=== PATIENT | male | born 1975 | race Caucasian/White ===

== ENCOUNTER 2016-08-10 09:40 | Emergency (ER) | payer OTHER ==
[~2016-08-10] VITALS: Ht 193 cm; Wt 108.9 kg
--- NOTE | 2016-08-10 10:20 | ED PSYCHIATRIC COMPLAINT ---
See Addendum History of Present Illness General Chief Complaint: ETOH/Drug Related Complaint Stated Complaint: DETOX FROM ETOH + SI Source: patient, family, old records Exam Limitations: no limitations Vital Signs & Intake/Output Vital Signs & Intake/Output Vital Signs Date Time Temp Pulse Resp B/P B/P Pulse O2 O2 Flow FiO2 Mean Ox Delivery Rate 08/11 0640 96.1 65 18 145/92 99 Room Air 08/11 0444 97.3 76 18 131/69 08/11 0442 97.3 76 18 131/69 97 Room Air 08/11 0227 97.5 75 18 130/68 08/11 0227 97.5 75 18 130/68 97 Room Air 08/11 0023 97.2 77 18 129/67 / 0021 97.2 77 18 129/67 96 Room Air 08/10 2251 97.1 76 18 130/69 08/10 2241 97.1 76 18 130/69 96 08/11 2019 97.4 77 18 131/78 08/11 2019 97.4 77 18 131/78 97 Room Air 08/10 1914 97.3 78 18 130/76 08/10 1820 97.3 78 18 130/76 08/10 1816 97.3 78 18 130/76 97 08/10 1647 97.4 79 18 114/56 08/10 1647 97.4 79 18 114/58 95 Room Air 08/10 1442 98.2 84 18 119/59 98 08/10 1416 97.5 94 18 125/69 08/10 1415 97.5 94 18 125/69 97 Room Air 08/10 0951 98.6 90 20 136/80 96 Room Air ED Intake and Output 08/11 0000 08/10 1200 Intake Total Output Total Balance Patient 240 lb Weight Weight Reported by Patient Measurement Method Allergies Coded Allergies: No Known Allergies (08/10/16) Triage Note: PT TO ED WITH FATHER PT STATES HE HAS H/O BIPOLAR AND HAS BEEN DRINKING MORE HEAVILY RECENTLY, "ANYTHING I CAN GET MY HANDS ON AND MUCH MY BODY CAN HANDLE". DENIES DRUG USE. 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 PT RESISTIVE TO CARE, AGGRESSIVE WITH FATHER. DENIES SI/HI. PT TAKING CLOTHES OFF IN TRIAGE. PT RE-DRESSED, TAKEN TO AVERY D VIA W/C. SECURITY AT BEDSIDE. Triage Nurses Notes Reviewed? yes HPI: Patient brought in by his father for increasing depression with suicidal ideations. Patient has been noncompliant with his medications. Patient has also been drinking steadily over the past few months. Patient has no history of DTs or seizures. Positive blackouts. Patient denies any homicidal ideations. Patient does not have a plan on how he would hurt himself however has reached out to the crisis hotline. Patient does not know why he does not take his medications. Patient's last drink was prior to arrival. (OLINDA MATHEW,PRESTON Whitman) Past History Travel History Traveled to [place] past 21 day No Medical History Any Pertinent Medical History? see below for history Psychiatric: bipolar disease Surgical History Surgical History: non-contributory Psychosocial History What is your primary language Bangladeshi Tobacco Use: Current Daily Use Daily Tobacco Use Amount/Type: => 5 Cigarettes daily ETOH Use: heavy use Illicit Drug Use: denies illicit drug use Family History Hx Contributory? No (OLINDA MATHEW,PRESTON Whitman) Review of Systems Review of Systems Constitutional: Reports: no symptoms. EENTM: Reports: no symptoms. Respiratory: Reports: no symptoms. Cardiovascular: Reports: no symptoms. GI: Reports: no symptoms. Genitourinary: Reports: no symptoms. Musculoskeletal: Reports: no symptoms. Skin: Reports: no symptoms. Neurological/Psychological: Reports: see HPI, depressed. Hematologic/Endocrine: Reports: no symptoms. Immunologic/Allergic: Reports: no symptoms. All Other Systems: Reviewed and Negative (OLINDA MATHEW,PRESTON Whitman) Physical Exam Physical Exam General Appearance: well developed/nourished, mild distress Head: atraumatic Eyes: Bilateral: PERRL, EOMI. Ears, Nose, Throat: normal pharynx, normal ENT inspection, hearing grossly normal Neck: normal inspection, supple Respiratory: normal breath sounds Cardiovascular: regular rate/rhythm Gastrointestinal: soft, non-tender Extremities: normal range of motion Neurological/Psychiatric: no motor/sensory deficits, awake, alert, oriented x 3 Appearance/Memory/Insight: appropriate appearance, appropriate insight Behavoir/Eye Contact/Speech: cooperative, normal speech, good eye contact Thoughts/Hallucinations: normal thought pattern, no apparent hallucination Skin: intact, normal color, warm/dry SAD PERSONS Done? CRISIS CONSULT OBTAINED (OLINDA MATHEW,PRESTON Whitman) Progress Differential Diagnosis: drug intoxication, drug overdose, drug withdrawal, electrolyte abnormality Plan of Care: Orders Procedure Date/time Status Regular Diet 08/10 D Active ED CRISIS PSYCH CONSULT 08/10 1017 Active Continuous Observation Monitor 08/10 1004 Active CIWA 08/10 1004 Active URINE DRUGS OF ABUSE 08/10 1004 Complete ETHANOL 08/10 1004 Complete COMPREHENSIVE METABOLIC PANEL 08/10 1004 Complete CBC WITHOUT DIFFERENTIAL 08/10 1004 Complete Laboratory Tests 08/10/16 1121: Urine Opiates Screen < 100.00, Methadone Screen < 40, Barbiturate Screen < 60, Ur Phencyclidine Scrn < 6.00, Amphetamines Screen < 100, U Benzodiazepines Scrn 104, Urine Cocaine Screen < 50, Urine Cannabis Screen > 80.00 H 08/10/16 1046: Anion Gap 13, Estimated GFR > 60, BUN/Creatinine Ratio 10.8, Glucose 87, Calcium 8.3 L, Total Bilirubin 0.4, AST 25, ALT 40, Alkaline Phosphatase 66, Total Protein 6.3, Albumin 3.9, Globulin 2.4, Albumin/Globulin Ratio 1.6, CBC w Diff NO MAN DIFF REQ, RBC 4.43 L, MCV 93.3, MCH 31.9 H, RDW 12.5, MPV 9.0, Gran % 56.4, Lymphocytes % 38.7, Monocytes % 4.1, Eosinophils % 0.5, Basophils % 0.3, Absolute Granulocytes 3.9, Absolute Lymphocytes 2.7, Absolute Monocytes 0.3, Absolute Eosinophils 0, Absolute Basophils 0, PUBS MCHC 34.1, Serum Alcohol 342.0 Hand-Off Endorsed To: PANDA MATHEW,LADARIUS Gold Endorsed Time: 1930 Pending: consult Comments: Patient is very agitated that I have not admitted him to detox unit. Patient's CIWA score remains very low. Patient advised of the criteria for admission or detox. Patient is becoming more agitated. (OLINDA MATHEW,PRESTON Whitman) Comments: 08/11/2016 7:32:31 AM patient signed out to me by Dr. 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 Uneventful emergency department stay overnight. Patient signed out to Dr. Romero. (PANDA MATHEW,LADARIUS Gold) Departure Departure Disposition: STILL A PATIENT Condition: Stable Clinical Impression Primary Impression: Depression Secondary Impressions: Alcohol dependency Referrals: ROMEO MATHEW,JSOELINE Montoya JR (PCP/Family) Departure Forms: Customer Survey General Discharge Information (OLINDA MATHEW,PRESTON Whitman)
[2016-08-10 10:58] LABS: ABSOLUTE BASOPHIL COUNT 0 /CUMM (0.0-0.2); ABSOLUTE EOSINOPHIL COUNT 0 /CUMM (0.0-0.7); ABSOLUTE GRANULOCYTE CT 3.9 /CUMM (1.4-6.5); ABSOLUTE LYMPH COUNT 2.7 /CUMM (1.2-3.4); ABSOLUTE MONOCYTE COUNT 0.3 /CUMM (0.10-0.60); BASOPHIL % 0.3 % (0.0-2.0); EOSINOPHIL % 0.5 % (0-5); GRANULOCYTE % 56.4 % (42.2-75.2); HEMATOCRIT 41.4 % (42-52); MEAN CORPUSCULAR HGB 31.9 PG (27.0-31.0); MEAN CORPUSCULAR HGB CONC 34.1 G/DL (33.0-37.0); MEAN CORPUSCULAR VOLUME 93.3 FL (80.0-94.0); PLATELET COUNT 232 /CUMM (130-400); RBC DISTRIBUTION WIDTH 12.5 % (11.5-14.5); RED BLOOD CELL CT 4.43 /CUMM (4.70-6.10)
--- NOTE | 2016-08-10 22:02 | ED PSY CRISIS COLLATERAL NOTE ---
Collateral Note Collateral Note Family/Inform/[place] Contacts: This song writer spoke to patient's Gypsy Rabago [phone] Patient's states this has been going on for a long time. She indicates longstanding alcohol use disorder since college. believes there is paternal family history of alcohol use disorder. A year ago, patient was prescribed medical marijuana by his PCP Dr. Maxim Bazzi MD and this PCP also prescribes lorazepam per report. reports patient was diagnosed with Bipolar II at [facility] . reports pt. has made suicidal statements recently but denies any history of suicidal attempts. reports patient's drinks hard liquor (vodka) and hides consumption from her. On a recent family vacation to [place], pt. had to be admitted to a hospital due to intoxication. 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 This song writer spoke to patient's mother and father Father reports his concern that patient is "drinking too much" and mother asserts she is worried "he's going to do something" suicidal. Parents deny any knowledge of previous suicide attempts. Father indicate patient has had problem alcohol use for over 15 years. Father beleives patient's alcohol use first escalated to binge drinking when he was attending [employer]. Father states patient recently "said bye to everyone" and also made the statement "no one loves me." Father states he warned patient that his alcohol use could lead to a heart attack to which patient replied "nothing has got me yet." Parents report treatment history of residential substance use rehabilitation at [facility] in 2008, [facility] twice in 2002 and most recently at an [facility] in 2009 (pt. left early.) Parents are concerned that pt. recently acquired a prescription for Oxycontin from a provider in [place], [place] when he went to seek medical attention for a deep cut in his finger. Father is concerned pt. procured a medical marijuana card. Father reports patient is a graduate of [employer] and is employed. Father and mother indicate patient may have marital conflict which is triggering suicidal ideation and substance use.
--- NOTE | 2016-08-11 09:15 | ED PSYCH CRISIS CONSULTATION ---
Crisis Consult Basic Assessment Date of Consult: 08/11/16 Responsible Person/Accompanied By: self/father Insurance Authorization: Insurance #1: Insurance name: [employer]INH Phone number: Policy number: [id number] Group number: [id number] Authorization number: ED Provider: Patient's ED Provider: OLINDA MATHEW,PRESTON Whitman Primary Care Physician: Patient's PCP: ROMEO MATHEW,JOSELINE Montoya JR PCP's Current Psychiatrist: none Chief Complaint: ETOH/Drug Related Complaint Patient's Quote: I have a lot of things going on in my life right now. Present Illness: Pt is a 41 yo male brought to [facility] yesterday morning by his father with a BAL of 340 at 10am. Pt reports he woke up saturday morning and started drinking vodka. Pt reports he is currently struggling with marital and work stress. 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 Pt has a long hx of treatment of etoh abuse and treatment attempts since 2007.Pt also reports an inpatient hospitalization at [facility] in 2007 and was diagnosed bi-polar and prescribed Seroquel. He reports not following up with bipolar medication and is currently only taking ativan and until medical marijuana. Pt reports increased depression related to continued alcohol abuse and stressors related to his alcohol abuse. Pt denies SI/HI. Pt presents as alert; OX3; cooperative. Pt appeared depressed-eyes red and glassy. Pt was Pt reports that he reached out on to [facility] and scheduled an intake on 08/15. Pt reports long periods of sobriety but past 6 months is drinking 2-3x/wk at least a half pint of vodka and feeling increasingly unable to not drink. Pt initially opposed to longer term alcohol rehabilitation but after further discussion with his parents agreed to admission at [facility] in [place]. Patient's Address: [address] [place] [address] Other Phone Number: Who Do You Live With? Family Family/Informants Interviewed: collateral provided by pt and parents. see collateral note. Allergies - Coded Allergies: No Known Allergies (08/10/16) Current Medications - Scheduled Medications Lorazepam 0.5 MG TABLET 1 TAB PO DAILY NEEDED ANXIETY #90 (Reported) Entered as Reported by TRINITY SERRANO on 08/11/16 1048 Methylphenidate HCl 10 MG TABLET 1 TAB PO BID ADD #90 (Reported) Entered as Reported by TRINITY SERRANO on 08/11/16 1048 Laboratory Results: Laboratory Tests 08/10/16 1121: Urine Opiates Screen < 100.00, Methadone Screen < 40, Barbiturate Screen < 60, Ur Phencyclidine Scrn < 6.00, Amphetamines Screen < 100, U Benzodiazepines Scrn 104, Urine Cocaine Screen < 50, Urine Cannabis Screen > 80.00 H 08/10/16 1046: Anion Gap 13, Estimated GFR > 60, BUN/Creatinine Ratio 10.8, Glucose 87, Calcium 8.3 L, Total Bilirubin 0.4, AST 25, ALT 40, Alkaline Phosphatase 66, Total Protein 6.3, Albumin 3.9, Globulin 2.4, Albumin/Globulin Ratio 1.6, CBC w Diff NO MAN DIFF REQ, RBC 4.43 L, MCV 93.3, MCH 31.9 H, RDW 12.5, MPV 9.0, Gran % 56.4, Lymphocytes % 38.7, Monocytes % 4.1, Eosinophils % 0.5, Basophils % 0.3, Absolute Granulocytes 3.9, Absolute Lymphocytes 2.7, Absolute Monocytes 0.3, Absolute Eosinophils 0, Absolute Basophils 0, PUBS MCHC 34.1, Serum Alcohol 342.0 Past History Past Medical History Psychiatric: bipolar disease Past Surgical History Surgical History: non-contributory Psychosocial History Strengths/Capabilities: 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 Reason for Treatment ETOH abuse Response to Treatment sporadic periods of sobriety and relapse Diagnosis by History: alcohol use d/o severe bipolar ? Substance Use/Abuse History Drug Use/Abuse 1 Substances Used/Abused Yes Substance Used/Abused Alcohol Last Used yesterday morning How much used/taken unsure How often 2-3 days/wk For how long 20 yrs Drug Use/Abuse 2 Substances Used/Abused Yes Substance Used/Abused Marijuana Last Used Saturday For how long past yr Substance Abuse Treatment Substance Abuse Treatment Past Substance Abuse [place] Yes Inpatient Treatment Yes Comments: several rehab programs most recent 2009. intoxification in [facility] Apr 2016. medical marijuana past yr. He reports last use on due to feeling it is increasing his anxiety. Current Mental Status Mental Status Orientation: Person, Place, Situation Affect: Depressed, Sad Speech: WNL Neuro-vegetative: Concentration Poor, Energy Decreased, Helpless, Sleep Disturbance Appearance Appearance- Dress/Hygiene: hospital scrubs; [id number] haircut; upright in chair/good eye contact; somewhat tearful Behaviors Thought Process: WNL Thought Content: WNL Memory: WNL Insight: Fair SI/HI Risk Assessment Past Suicidal Ideation/Attempts No Current Suicidal Ideation/Att No Past Homicidal Ideation/Att: No Current Homicidal Ideation/Attempts No Degree of Intent: None Gravely Disabled: Poor Impulse Control, Poor Judgment Risk Factors: high anxiety/distress, SA/MH hospitalized, substance abuse, poor impulse control, male Lethality Ratin PTSD Checklist PTSD Done? patient declined ED Management Sitter: Yes Restraints: No DSM5/PS Stressors/Medical Prob Diagnosis' (DSM 5, Stressors, Medical): Alcohol Use Severe (F10.20) Bipolar by hx marital work Current GAF: 40 Comments: Pt has a long hx of problem alcohol use with multiple attempts at etoh rehab in the past. Pt reports increased depression due to his recent increase in frequency and intake and experiencing marital and work stress related to his use.On pt reached out to [facility] and scheduled an intake for 08/15. Departure Disposition Psych Medical Clearance Date: 08/11/16 Medically Cleared at: 0815 Time Started: 0820 Time Ended: 0900 Psychiatrist Consulted: Lily Bryant MD Date Disposition Established: 08/11/16 Time Disposition Established: 09 Plan for Disposition - Modality: [facility] - Alcohol rehab Follow-up Appt Date: 08/11/16 Follow-Up Appt Time: 1300 (admission) Rationale for Disposition: Pt in need of long tern rehabilitation for problem alcohol use. Pt was initially committed to discharge and attend [facility] intake on 08/15. Following further discussion with his parents pt agreed to [facility] admission. Additional Instructions: Pt has a 08/15 [facility] appt scheduled. [facility] updated that pt being discharged to [facility]. Referrals ROMEO MATHEW,JOSELINE Montoya JR (PCP/Family)
[2016-08-11 10:46] VITALS: BP 150/102
[2016-08-11] MEDS ORDERED: METHYLPHENIDATE10 M7 PO (10:48)
[2016-08-11] MEDS ORDERED: LORAZEPAM0.5 M1 PO (10:48)
== END 2016-08-11 10:49 ==
LOC: ERH 09:40
PROVIDERS: Emergency Medicine
DX: F32.9 Major depressive disorder, single episode, unspecified (principal); F10.20 Alcohol dependence, uncomplicated
CPT/HCPCS: 80307; G0480